=== PATIENT | male | born 1970 | race Caucasian/White ===

== ENCOUNTER 2016-10-25 10:28 | Emergency (ER) | payer OTHER ==
[2016-10-25 10:44] VITALS: BP 129/89; PULSE 79; RESP 15; TEMP 98.3
--- NOTE | 2016-10-25 10:58 | ED ---
General Adult HPI - General Chief complaint: Extremity Injury, Upper Stated complaint: LEFT SHOULDER INJURY Time Seen by Provider: 10/25/16 10:45 Source: patient, family, RN notes reviewed Mode of arrival: ambulatory Limitations: no limitations - History of Present Illness Initial comments: Laying and history of present illness a 45-year-old male here with his significant other. Patient reports he was playing football yesterday with his children and he landed on his left shoulder. The patient presents now with pain through the left shoulder area. No head or neck injury. No loss of consciousness. - Related Data Previous Rx's Medication Instructions Recorded Ibuprofen [Motrin] 600 mg PO Q6HR PRN #20 tab 10/25/16 Allergies Allergy/AdvReac Type Severity Reaction Status Date / Time No Known Allergies Allergy Verified 10/25/16 10:44 Review of Systems ROS Statement: Those systems with pertinent positive or pertinent negative responses have been documented in the HPI. Review of systems. No visual acuity changes no headache no stiff neck no neck pain. No chest pain shows breath GI/ problems. No balance problems. Patient has pain to his left shoulder area along the AC area. Range of motion is decreased with abduction. Passive range of motion was much less uncomfortable. All systems are reviewed. Past medical problems significant for diverticulitis. Surgeries none. Family history mother had lung cancer. Patient denies ALLERGIES. He does smoke strongly encouraged. He states he quits drinking alcohol for 12 years but drank yesterday. ROS Other: All systems not noted in ROS Statement are negative. Past Medical History Past Medical History: No Reported History Additional Past Medical History / Comment(s): diverticulitis History of Any Multi-Drug Resistant Organisms: None Reported Past Surgical History: No Surgical Hx Reported Additional Past Anesthesia/Blood Transfusion Reaction / Comment(s): no family problems w/anesthesia Past Psychological History: No Psychological Hx Reported Smoking Status: Current every day smoker Past Alcohol Use History: Occasional Additional Past Alcohol Use History / Comment(s): <ppd since age of 18 Past Drug Use History: None Reported - Past Family History Mother Family Medical History: Cancer General Exam - General Exam Comments Initial Comments: General: The patient is awake and alert, complaining of left shoulder pain. Vital signs shows temperature 98.3 pulse 79 respiratory rate 15 pulse ox 97% room air blood pressure 129/89 Eye: Pupils are equal, round and reactive to light, extra-ocular movements are intact ; there is normal conjunctiva bilaterally. No signs of icterus. Ears, nose, mouth and throat: There are moist mucous membranes and no oral lesions. Neck: The neck is supple, there is no tenderness , no anterior cervical lymphadenopathy. Cardiovascular: There is a regular rate and rhythm. No murmur, rub or gallop is appreciated. Respiratory: Lungs are clear to auscultation, respirations are non-labored, breath sounds are equal. No wheezes, stridor, rales, or rhonchi. Gastrointestinal: Soft, non-distended, non-tender abdomen without masses or organomegaly noted. There is no rebound or guarding present. No CVA tenderness. Bowel sounds are unremarkable. Back: There is no tenderness to palpation in the midline. There is no obvious deformity. Range of motion rash noted over right scapula where he fell off his 4 briscoe. Abdomen shows full range of motion otherwise no complaints of discomfort in that area. Musculoskeletal: IS NORMAL EXCEPT LEFT SHOULDER AREA. NEAR THE LEFT ACROMIOCLAVICULAR AREA. PAIN WITH ACTIVE MOTION AND SIGNIFICANTLY LESS PAIN WITH PASSIVE RANGE OF MOTION ACTIVITY. NORVASC STATUS TO THE HAND IS INTACT. NO BRUISES MINIMAL SWELLING NOTED OF THE SHOULDER AREA. Neurological: No focal or lateralizing findings appreciated. Skin: Skin is warm and dry and no rashes or lesions are noted. Limitations: no limitations Course Vital Signs 10/25/16 10:40 Temperature 98.3 F Pulse Rate 79 Respiratory 15 Rate Blood Pressure 129/89 O2 Sat by Pulse 97 Oximetry Medical Decision Making - Medical Decision Making Radiologist reviewed the x-rays of the shoulder and his impression is; bone mineralization, joint space alignment are maintained. Left lung apex as visualized normal. Impression no acute abnormality evident. As read by Dr. Lucio Patient will be advised to use ice to the area. Ibuprofen 600 mg for discomfort. Ice to the area for discomfort. Advised follow-up with family physician as needed. Disposition Clinical Impression: Strain of shoulder, Shoulder contusion Disposition: HOME SELF-CARE Condition: Fair Additional Instructions: Ice elevate, rest shoulder. Appropriate for pain. Off work. Follow-up with family physician. Prescriptions: Ibuprofen [Motrin] 600 mg PO Q6HR PRN #20 tab PRN Reason: Pain Referrals: Imani Willingham DO [Primary Care Provider] - 1-2 days Time of Disposition: 11:39
--- NOTE | 2016-10-25 11:36 | XR ---
Left shoulder HISTORY: Pain 3 views of the left shoulder Bone mineralization, joint spaces and alignment are maintained. Left lung apex as visualized is geronimo l. IMPRESSION: No acute abnormality evident
== END 2016-10-25 11:59 | disposition home or self-care (01) ==
LOC: EC 10:28
DX: S46.912A Strain of unspecified muscle, fascia and tendon at shoulder and upper arm level, left arm, initial encounter (principal); F17.200 Nicotine dependence, unspecified, uncomplicated; W50.0XXA Accidental hit or strike by another person, initial encounter; Y93.61 Activity, american tackle football
CPT/HCPCS: 99283

== ENCOUNTER 2017-12-14 09:39 | Observation (INO) | payer OTHER ==
[2017-12-14] MEDS ORDERED: ASPIRIN 81 MG PO STA (10:00)
--- NOTE | 2017-12-14 10:11 | ED ---
General Adult HPI <Jamel Vance - Last Filed: 12/14/17 11:31> - General Source: patient, RN notes reviewed Mode of arrival: wheelchair Limitations: no limitations <Isidro Giles - Last Filed: 12/14/17 11:35> - General Chief complaint: Chest Pain Stated complaint: chest pain Time Seen by Provider: 12/14/17 09:54 - History of Present Illness Initial comments: Patient 47-year-old male presenting to the emergency room today with chief complaint of chest pain. Patient does admit that he was at work earlier today when he broke out into a sweat and was feeling some chest discomfort. Patient states currently chest pain-free at this time. Patient states that her last few days she's had some sinus congestion. States a minimal cough as well. Patient denies any other complaints or symptoms currently. Patient denies any recent shortness of breath, abdominal pain, nausea or vomiting, numbness or tingling, dysuria or hematuria, constipation or diarrhea, headaches or visual changes, or any other complaints. (Isidro Giles) - Related Data Home Medications Medication Instructions Recorded Confirmed No Known Home Medications 12/14/17 12/14/17 Allergies Allergy/AdvReac Type Severity Reaction Status Date / Time No Known Allergies Allergy Verified 12/14/17 10:23 Review of Systems ROS Other: All systems not noted in ROS Statement are negative. <Jamel Vance - Last Filed: 12/14/17 11:31> ROS Other: All systems not noted in ROS Statement are negative. <Isidro Giles - Last Filed: 12/14/17 11:35> ROS Statement: Those systems with pertinent positive or pertinent negative responses have been documented in the HPI. Past Medical History Past Medical History: No Reported History Additional Past Medical History / Comment(s): diverticulitis History of Any Multi-Drug Resistant Organisms: None Reported Past Surgical History: No Surgical Hx Reported Additional Past Anesthesia/Blood Transfusion Reaction / Comment(s): no family problems w/anesthesia Past Psychological History: No Psychological Hx Reported Smoking Status: Current every day smoker Past Alcohol Use History: Occasional Past Drug Use History: None Reported - Past Family History Mother Family Medical History: Cancer <Isidro Giles - Last Filed: 12/14/17 11:35> General Exam <Jamel Vance - Last Filed: 12/14/17 11:31> Limitations: no limitations <Isidro Giles - Last Filed: 12/14/17 11:35> - General Exam Comments Initial Comments: General: The patient is awake and alert, in no distress, and does not appear acutely ill. Eye: Pupils are equal, round and reactive to light, extra-ocular movements are intact. No nystagmus. There is normal conjunctiva bilaterally. No signs of icterus. Ears, nose, mouth and throat: There are moist mucous membranes and no oral lesions. Neck: The neck is supple, there is no tenderness or JVD. Cardiovascular: There is a regular rate and rhythm. No murmur, rub or gallop is appreciated. Respiratory: Lungs are clear to auscultation, respirations are non-labored, breath sounds are equal. No wheezes, stridor, rales, or rhonchi. Gastrointestinal: Soft, non-distended, non-tender abdomen without masses or organomegaly noted. There is no rebound or guarding present. No CVA tenderness. Musculoskeletal: Normal ROM, no tenderness. Strength 5/5. Sensation intact. Pulses equal bilaterally 2+. Neurological: A&O x 3. CN II-XII intact, There are no obvious motor or sensory deficits. Coordination appears grossly intact. Speech is normal. Skin: Skin is warm and dry and no rashes or lesions are noted. Psychiatric: Cooperative, appropriate mood & affect, normal judgment. (Isidro Giles) Vital Signs 12/14/17 12/14/17 09:49 11:16 Temperature 98.1 F Pulse Rate 89 72 Respiratory 18 18 Rate Blood Pressure 141/68 133/83 O2 Sat by Pulse 100 95 Oximetry Medical Decision Making - Lab Data Result diagrams: 12/14/17 10:04 12/14/17 10:04 <Jamel Vance - Last Filed: 12/14/17 11:31> - Lab Data Result diagrams: 12/14/17 10:04 12/14/17 10:04 <Isidro Giles - Last Filed: 12/14/17 11:35> - Medical Decision Making Patient was evaluated by myself, Dr. Vance. Patient resting comfortably in bed with only mild discomfort at this time. Patient did have pressure with radiation towards the back with associated sweating and nausea. Heart sounds: S1-S2 regular rate and rhythm without murmur. Lungs are clear to auscultation. No chest tenderness. Radial and pedal pulses 2/4 throughout. I reviewed and agree with the PA findings including diagnostic interpretation. Plan as written unless otherwise stated. Case was discussed in detail with Dr. Rivera, who will admit for Dr. Willingham. Patient and family were updated. (Jamel Vance) - Lab Data Lab Results 12/14/17 12/14/17 12/14/17 Range/Units 10:04 10:04 10:04 WBC 6.5 (3.8-10.6) k/uL RBC 5.11 (4.30-5.90) m/uL Hgb 17.4 (13.0-17.5) gm/dL Hct 48.9 (39.0-53.0) % MCV 95.7 (80.0-100.0) fL MCH 34.0 (25.0-35.0) pg MCHC 35.5 (31.0-37.0) g/dL RDW 13.2 (11.5-15.5) % Plt Count 179 (150-450) k/uL Neutrophils % 58 % Lymphocytes % 32 % Monocytes % 6 % Eosinophils % 2 % Basophils % 1 % Neutrophils # 3.8 (1.3-7.7) k/uL Lymphocytes # 2.1 (1.0-4.8) k/uL Monocytes # 0.4 (0-1.0) k/uL Eosinophils # 0.1 (0-0.7) k/uL Basophils # 0.0 (0-0.2) k/uL PT (9.0-12.0) sec INR (<1.2) APTT (22.0-30.0) sec Sodium 141 (137-145) mmol/L Potassium 4.3 (3.5-5.1) mmol/L Chloride 109 H (98-107) mmol/L Carbon Dioxide 25 (22-30) mmol/L Anion Gap 7 mmol/L BUN 15 (9-20) mg/dL Creatinine 1.24 (0.66-1.25) mg/dL Est GFR (CKD-EPI)AfAm 80 (>60 ml/min/1.73 sqM) Est GFR (CKD-EPI)NonAf 69 (>60 ml/min/1.73 sqM) Glucose 94 (74-99) mg/dL Calcium 9.4 (8.4-10.2) mg/dL Magnesium 1.8 (1.6-2.3) mg/dL Total Bilirubin 0.6 (0.2-1.3) mg/dL AST 47 (17-59) U/L ALT 67 (21-72) U/L Alkaline Phosphatase 64 (38-126) U/L Total Creatine Kinase 211 H (55-170) U/L CK-MB (CK-2) 2.7 H* (0.0-2.4) ng/mL CK-MB (CK-2) Rel Index 1.3 Troponin I <0.012 (0.000-0.034) ng/mL Total Protein 7.0 (6.3-8.2) g/dL Albumin 4.3 (3.5-5.0) g/dL / Range/Units 10:04 WBC (3.8-10.6) k/uL RBC (4.30-5.90) m/uL Hgb (13.0-17.5) gm/dL Hct (39.0-53.0) % MCV (80.0-100.0) fL MCH (25.0-35.0) pg MCHC (31.0-37.0) g/dL RDW (11.5-15.5) % Plt Count (150-450) k/uL Neutrophils % % Lymphocytes % % Monocytes % % Eosinophils % % Basophils % % Neutrophils # (1.3-7.7) k/uL Lymphocytes # (1.0-4.8) k/uL Monocytes # (0-1.0) k/uL Eosinophils # (0-0.7) k/uL Basophils # (0-0.2) k/uL PT 10.3 (9.0-12.0) sec INR 1.1 (<1.2) APTT 25.1 (22.0-30.0) sec Sodium (137-145) mmol/L Potassium (3.5-5.1) mmol/L Chloride (98-107) mmol/L Carbon Dioxide (22-30) mmol/L Anion Gap mmol/L BUN (9-20) mg/dL Creatinine (0.66-1.25) mg/dL Est GFR (CKD-EPI)AfAm (>60 ml/min/1.73 sqM) Est GFR (CKD-EPI)NonAf (>60 ml/min/1.73 sqM) Glucose (74-99) mg/dL Calcium (8.4-10.2) mg/dL Magnesium (1.6-2.3) mg/dL Total Bilirubin (0.2-1.3) mg/dL AST (17-59) U/L ALT (21-72) U/L Alkaline Phosphatase (38-126) U/L Total Creatine Kinase (55-170) U/L CK-MB (CK-2) (0.0-2.4) ng/mL CK-MB (CK-2) Rel Index Troponin I (0.000-0.034) ng/mL Total Protein (6.3-8.2) g/dL Albumin (3.5-5.0) g/dL Disposition <Jamel Vance - Last Filed: 12/14/17 11:31> Is patient prescribed a controlled substance at d/c from ED?: No Time of Disposition: 11:35 <Isidro Giles - Last Filed: 12/14/17 11:35> Clinical Impression: Chest pain Disposition: ADMITTED IP TO THIS HOSP Condition: Stable Referrals: Imani Willingham DO [Primary Care Provider] - 1-2 days
--- NOTE | 2017-12-14 10:21 | XR ---
EXAMINATION TYPE: XR chest 2V DATE OF EXAM: 12/14/2017 COMPARISON: None HISTORY: 47-year-old male with chest pain TECHNIQUE: PA and lateral views FINDINGS: Heart normal size. Aorta and pulmonary vasculature within normal limits. Strandy atelectasis lower jose antonio ngs. No consolidation or pleural effusion. IMPRESSION: No acute cardiopulmonary process.
[2017-12-14 10:25] LABS: Basophils % (A) 1 %; Eosinophils # (A) 0.1 k/uL (0-0.7); Eosinophils % (A) 2 %; HCT 48.9 % (39.0-53.0); HGB 17.4 gm/dL (13.0-17.5); Lymphocytes # (A) 2.1 k/uL (1.0-4.8); Lymphocytes % (A) 32 %; MCHC 35.5 g/dL (31.0-37.0); MCV 95.7 fL (80.0-100.0); Mean Platelet Volume 8.4; Monocytes # (A) 0.4 k/uL (0-1.0); Monocytes % (A) 6 %; Neutrophils # (A) 3.8 k/uL (1.3-7.7); Neutrophils % (A) 58 %; Platelet Count 179 k/uL (150-450); RBC 5.11 m/uL (4.30-5.90); RDW 13.2 % (11.5-15.5); WBC 6.5 k/uL (3.8-10.6)
[2017-12-14 10:30] LABS: INR 1.1 (<1.2); Partial Thromboplastin Time 25.1 sec (22.0-30.0); Prothrombin Time 10.3 sec (9.0-12.0)
[2017-12-14 10:34] LABS: Albumin 4.3 g/dL (3.5-5.0); Calcium 9.4 mg/dL (8.4-10.2); Magnesium 1.8 mg/dL (1.6-2.3); Potassium 4.3 mmol/L (3.5-5.1); Total Bilirubin 0.6 mg/dL (0.2-1.3)
[2017-12-14] MEDS ORDERED: NITROGLYCERIN SL TABS 0.4 MG TAB SUBLINGUAL STA (10:50)
[2017-12-14 10:56] LABS: Creatine Kinase 211 U/L (55-170)
[2017-12-14 11:08] LABS: Troponin I <0.012 ng/mL (0.000-0.034)
[2017-12-14 11:10] LABS: Creatine Kinase MB 2.7 ng/mL (0.0-2.4)
[2017-12-14] MEDS ORDERED: NITROGLYCERIN SL TABS 0.4 MG TAB SUBLINGUAL PRN (11:31)
[2017-12-14] MEDS ORDERED: SODIUM CHLORIDE 0.9% 1,000 ML IV ONE (11:31)
--- NOTE | 2017-12-14 12:41 | P.HPIM ---
History of Present Illness H&P Date: 12/14/17 Chief Complaint: Chest pain This is a 47-year-old male, patient of Dr. Willingham. He has a known past medical history of pinched nerve in his neck, nicotine dependence and daily alcohol use. Patient reports over the last 3 days he's had upper back discomfort. He felt like there was a knot in his back. Today while he was at work he started to have chest discomfort and was sweating profusely. The pain radiated up into the left shoulder. He had lasted for a few minutes he became concerned and presented to the emergency room for further evaluation and treatment. He was given nitro and it did help relieve some of his symptoms. He is concerned because he had a father who of a heart attack at the age of 52. Patient's last stress test was about 4 years ago and wound was negative. Patient has been admitted to the observation floor. Cardiology has been consulted. First troponin was negative, EKG normal sinus rhythm and chest x-ray was negative for any acute pulmonary process. D-dimer normal at 0.35. Patient also reports having some sinus congestion mostly in the morning but clears as the day proceeds. He denies any significant cough, shortness of breath, nausea or vomiting, bowel movement changes or urinary symptoms. He does report having a mild cough in the morning. Denies any lightheadedness or vision changes. Patient denies any new exercises or increasing his physical activity. Denies any new injury to his back. Patient also reports that he's been more stressed at work and is unsure if this is causing some of his symptoms. Review of Systems Please refer to HPI otherwise unremarkable Past Medical History Past Medical History: No Reported History Additional Past Medical History / Comment(s): diverticulitis History of Any Multi-Drug Resistant Organisms: None Reported Past Surgical History: No Surgical Hx Reported Additional Past Anesthesia/Blood Transfusion Reaction / Comment(s): no family problems w/anesthesia Past Psychological History: No Psychological Hx Reported Smoking Status: Current every day smoker Past Alcohol Use History: Occasional Past Drug Use History: None Reported - Past Family History Mother Family Medical History: Cancer Medications and Allergies Home Medications Medication Instructions Recorded Confirmed Type No Known Home Medications 12/14/17 12/14/17 History Allergies Allergy/AdvReac Type Severity Reaction Status Date / Time No Known Allergies Allergy Verified 12/14/17 10:23 Physical Exam Vitals: Vital Signs Temp Pulse Resp BP Pulse Ox 12/14/17 11:16 72 18 133/83 95 12/14/17 09:49 98.1 F 89 18 141/68 100 Intake and Output 12/13/17 12/14/17 12/14/17 22:59 06:59 14:59 Other: Weight 90.129 kg Head normocephalic Neck supple Lungs clear to auscultation bilaterally no wheezing or crackles Heart regular rate and rhythm S1-S2, no rub or gallop Abdomen is soft nontender nondistended positive bowel sounds no hepatosplenomegaly Extremities no edema Neuro alert and orientated to 3 Back: No rashes or lesions noted. Tender with palpation of the paravertebral muscles along the thoracic spine Results CBC & Chem 7: 12/14/17 10:04 12/14/17 10:04 Labs: Abnormal Lab Results - Last 24 Hours (Table) 12/14/17 12/14/17 Range/Units 10:04 10:04 Chloride 109 H (98-107) mmol/L Total Creatine Kinase 211 H (55-170) U/L CK-MB (CK-2) 2.7 H* (0.0-2.4) ng/mL Assessment and Plan Assessment: 1. Chest pain: First troponin negative, EKG normal sinus rhythm, d-dimer 0.35. Chest x-ray negative. Cardiology consulted. patient does have significant family cardiac history with a father who at age 52 due to heart attack. Patient denies any diabetes, hypertension, hyperlipidemia 2. Nicotine dependence: Discussed smoking cessation for greater than 3 minutes. Patient refuses nicotine patch at this time 3. Daily alcohol use. Patient reports drinking one glass of vodka and Pepsi almost daily. But has no problem going without alcoholic drink GI prophylaxis Protonix and DVT prophylaxis Lovenox Time with Patient: Greater than 30 (Greater than 60% of the total time spent in counseling and coordination of care.I performed an examination of the patient and discussed their management with the physician Textile Worker. I have reviewed the Physician Textile Worker's notes and agree with the documented findings and plan of care)
--- NOTE | 2017-12-14 15:26 | ECHOF ---
Referral Reason:cp MEASUREMENTS -------- HEIGHT: 180.3 cm WEIGHT: 89.8 kg BP: IVSd: 1.2 cm (0.6 - 1.1) LVIDd: 3.9 cm (3.9 - 5.3) LVPWd: 1.4 cm (0.6 - 1.1) IVSs: 1.7 cm LVIDs: 2.5 cm LVPWs: 1.8 cm RVIDd: 2.5 cm (< 3.3) Ao Diam: 3.5 cm (2.0 - 3.7) LA Diam: 3.0 cm (2.7 - 3.8) AV Cusp: 2.2 cm (1.5 - 2.6) EPSS: 0.3 cm MV E Phil: 0.92 m/s MV DecT: 139 ms MV A Phil: 0.37 m/s MV E/A Ratio: 2.50 RAP: 5.00 mmHg RVSP: 12.32 mmHg MV EF SLOPE: 108.66 mm/s (70 - 150) MV EXCURSION: 21.87 mm (> 18.000) FINDINGS -------- Sinus rhythm. This was a technically good study. The left ventricular size is normal. There is mild concentric left ventricular hypertrophy. Overa ll left ventricular systolic function is normal with, an EF between 55 - 60 %. The right ventricle is normal in size and function. The left atrium is normal in size. The right atrium is normal in size. The aortic valve is trileaflet, and appears structurally normal. No aortic stenosis or regurgitation. There is trace mitral regurgitation. Trace tricuspid regurgitation present. The right ventricular systolic pressure, as measured by Dopp ler, is 12.32mmHg. Pulmonic valve appears structurally normal. The aortic root size is normal. Normal inferior vena cava with normal inspiratory collapse consistent with estimated right atrial pre ssure of 5 mmHg. The pericardium is normal. CONCLUSIONS -------- 1. Sinus rhythm. 2. This was a technically good study. 3. The left ventricular size is normal. 4. There is mild concentric left ventricular hypertrophy. 5. Overall left ventricular systolic function is normal with, an EF between 55 - 60 %. 6. The right ventricle is normal in size and function. 7. The left atrium is normal in size. 8. The right atrium is normal in size. 9. The aortic valve is trileaflet, and appears structurally normal. No aortic stenosis or regurgitati on. 10. There is trace mitral regurgitation. 11. Trace tricuspid regurgitation present. 12. The right ventricular systolic pressure, as measured by Doppler, is 12.32mmHg. 13. Pulmonic valve appears structurally normal. 14. The aortic root size is normal. 15. Normal inferior vena cava with normal inspiratory collapse consistent with estimated right atrial pressure of 5 mmHg. 16. The pericardium is normal. SUPERVISOR HARVESTING: Margo Hendrickson RDCS
[2017-12-14] MEDS ORDERED: RX INFO: IV CONTRAST WAS GIVEN 1 EACH MISC MISCELLANE PRN (15:44)
--- NOTE | 2017-12-14 15:45 | P.CRDCN ---
History of Present Illness History of present illness: Mr. Mukherjee is a pleasant 47-year-old male past medical history significant for chronic nicotine dependence and significant family history of CAD with father having TN at 52 causing . He denies personal history of CAD and most recent stress test was 4-years ago. We have been asked to see him in consultation for chest pain. He states starting last week [place] he had pain in the mid back region that was very uncomfortable and achy. He states it feels like there is a knot in his back. The pain in the back has been ongoing and steady with no specific aggravating factors. Today while at work he walked back to his desk to some paperwork and felt an intense pressure in his chest. He continued to have achy/knot sensation in his back. He denies radiation down the arms, into the neck or the jaw. He felt nauseated and diaphoretic with these symptoms. He denies associated shortness of breath, palpitations, vomiting or dizziness. He drove himself to the emergency department from work. When he arrived at the hospital he still had some minimal chest discomfort and was given a sublingual nitroglycerin. His symptoms seem to have subsided after that. He continues to feel a discomfort in the mid back region. This is constant and not reproducible on palpation. EKG reveals sinus mechanism with no acute ST or T-wave abnormalities. Chest x-ray is negative for an acute cardiopulmonary process. Laboratory data reviewed, hemoglobin 17.4, platelets 179, d-dimer 0.35, sodium 141, potassium 4.3, magnesium 1.8, creatinine 1.24, troponin less than 0.012 with a CK-MB of 2.7. He takes no daily medications. Review of Systems At the time of my exam: CONSTITUTIONAL: Denies fever. Denies chills. EYES: Denies blurred vision. Denies vision changes. Denies eye pain. EARS, NOSE, MOUTH & THROAT: Denies headache. Denies sore throat. Denies ear pain. CARDIOVASCULAR: Denies chest pain. Denies shortness of breath. Denies orthopnea. Denies PND. Denies palpitations. RESPIRATORY: Denies cough. GASTROINTESTINAL: Denies abdominal pain. Denies diarrhea. Denies constipation. Denies nausea. Denies vomiting. MUSCULOSKELETAL: Complains of mid back discomfort. INTEGUMENTARY: Denies pruitis. Denies rash. NEUROLOGIC: Denies numbness. Denies tingling. Denies weakness. PSYCHIATRIC: Denies anxiety. Denies depression. ENDOCRINE: Denies fatigue. Denies weight change. Denies polydipsia. Denies polyurina. GENITOURINARY: Denies burning, hematuria or urgency with micturation. HEMATOLOGIC: Denies history of anemia. Denies bleeding. Past Medical History Past Medical History: No Reported History Additional Past Medical History / Comment(s): Recent sinus congestion with minimal cough, diverticulitis, occasional R posterior neck pain. History of Any Multi-Drug Resistant Organisms: None Reported Past Surgical History: No Surgical Hx Reported Additional Past Anesthesia/Blood Transfusion Reaction / Comment(s): No family problems w/anesthesia. Pt has never had anesthesia Smoking Status: Current every day smoker - Past Family History Mother Family Medical History: Cancer Additional Family Medical History / Comment(s): Mother from lung cancer at the age of 63 yrs. She was a former smoker. Father Family Medical History: Myocardial Infarction (TN) Additional Family Medical History / Comment(s): Father of a TN at the age of 52 yrs. Medications and Allergies Home Medications Medication Instructions Recorded Confirmed Type No Known Home Medications 12/14/17 12/14/17 History Allergies Allergy/AdvReac Type Severity Reaction Status Date / Time No Known Allergies Allergy Verified 12/14/17 10:23 Physical Exam Vitals: Vital Signs Temp Pulse Pulse Resp BP BP Pulse Ox 12/14/17 12:00 98 F 58 L 18 126/76 95 12/14/17 11:16 72 18 133/83 95 12/14/17 09:49 98.1 F 89 18 141/68 100 Intake and Output 12/14/17 12/14/17 12/14/17 06:59 14:59 22:59 Intake Total 236 Balance 236 Intake: Oral 236 Other: Voiding Method Toilet # Voids 1 Weight 89.9 kg Blood pressure 126/76 heart rate 58 afebrile maintaining oxygen saturation on room air GENERAL: This is a 47-year-old male in no apparent distress at the time of my examination. HEENT: Head is atraumatic, normocephalic. Pupils are equal, round. Sclerae anicteric. Conjunctivae are clear. Mucous membranes of the mouth are moist. Neck is supple. There is no jugular venous distention. No carotid bruit is heard. LUNGS: Clear to auscultation no wheezes, rales or rhonchi. No chest wall tenderness is noted on palpation or with deep breathing. HEART: Regular rate and rhythm without murmurs, rubs or gallops. S1 and S2 heard. ABDOMEN: Soft, nontender. Bowel sounds are heard. No organomegaly noted. EXTREMITIES: No evidence of peripheral edema and no calf tenderness noted. VASCULAR: Radial and dorsalis pedis pulses palpated, no evidence of clubbing. NEUROLOGIC: Patient is awake, alert and oriented x3. Results 12/14/17 10:04 12/14/17 10:04 Cardiac Enzymes 12/14/17 12/14/17 Range/Units 10:04 10:04 AST 47 (17-59) U/L CK-MB (CK-2) 2.7 H* (0.0-2.4) ng/mL Troponin I <0.012 (0.000-0.034) ng/mL Coagulation 12/14/17 Range/Units 10:04 PT 10.3 (9.0-12.0) sec APTT 25.1 (22.0-30.0) sec CBC 12/14/17 Range/Units 10:04 WBC 6.5 (3.8-10.6) k/uL RBC 5.11 (4.30-5.90) m/uL Hgb 17.4 (13.0-17.5) gm/dL Hct 48.9 (39.0-53.0) % Plt Count 179 (150-450) k/uL Comprehensive Metabolic Panel 12/14/17 Range/Units 10:04 Sodium 141 (137-145) mmol/L Potassium 4.3 (3.5-5.1) mmol/L Chloride 109 H (98-107) mmol/L Carbon Dioxide 25 (22-30) mmol/L BUN 15 (9-20) mg/dL Creatinine 1.24 (0.66-1.25) mg/dL Glucose 94 (74-99) mg/dL Calcium 9.4 (8.4-10.2) mg/dL AST 47 (17-59) U/L ALT 67 (21-72) U/L Alkaline Phosphatase 64 (38-126) U/L Total Protein 7.0 (6.3-8.2) g/dL Albumin 4.3 (3.5-5.0) g/dL Current Medications Generic Name Dose Route Start Last Admin Trade Name Victor Manuel PRN Reason Stop Dose Admin Aspirin 325 mg 12/15/17 09:00 Aspirin PO DAILY [facility] Heparin Sodium (Porcine) 5,000 unit 12/14/17 21:00 Heparin SQ Q12HR [facility] Sodium Chloride 1,000 mls @ 20 mls/hr 12/14/17 11:31 12/14/17 13:04 Saline 0.9% IV 12/15/17 11:30 Not Given .Q24H ONE Nitroglycerin 0.4 mg 12/14/17 11:31 Nitrostat SUBLINGUAL Q5M PRN Chest Pain Pantoprazole Sodium 40 mg 12/15/17 07:30 Protonix PO AC-BRKFST [facility] Intake and Output 12/14/17 12/14/17 12/14/17 06:59 14:59 22:59 Intake Total 236 Balance 236 Intake: Oral 236 Other: Voiding Method Toilet # Voids 1 Weight 89.9 kg Patient Weight 12/15/17 06:59 Weight 89.9 kg 12/14/17 10:04 12/14/17 10:04 Assessment and Plan Assessment: ASSESSMENT Chest pain radiating from the back through to the chest with associated nausea and diaphoresis. Chronic nicotine dependence Family history of premature coronary artery disease causing Daily alcohol intake PLAN Obtain 2-D echocardiogram and Doppler study to assess cardiac structure and function. Continue to obtain serial cardiac enzymes to rule out an acute coronary event. Obtain stat CT of the chest to assess aorta. EKG and cardiac enzymes are normal we will consider proceeding with a stress test in the morning. Further recommendations to follow. Thank you kindly for this consultation. Nurse Practitioner note has been reviewed, I agree with a documented findings and plan of care. Patient was seen and examined.
[2017-12-14 16:07] LABS: Creatine Kinase 135 U/L (55-170)
[2017-12-14 16:20] LABS: Creatine Kinase MB 1.8 ng/mL (0.0-2.4); Troponin I <0.012 ng/mL (0.000-0.034)
--- NOTE | 2017-12-14 17:07 | CT ---
EXAMINATION TYPE: CT chest w con DATE OF EXAM: 12/14/2017 COMPARISON: None HISTORY: Chest pain and nausea today. CT DLP: 378.9 mGycm Automated exposure control for dose reduction was used. CONTRAST: CT scan of the chest is performed with IV Contrast, patient injected with 100ml mL of Isovue M300. FINDINGS: The lungs are clear of infiltrate. There is no evidence of a pulmonary mass. There is no pleural effu bib. Heart size is normal. There is no pericardial effusion. There are no hilar masses. There is no mediastinal adenopathy. Thoracic aorta appears normal. There is no evidence of aneurysm or dissection . Ascending aorta measures 3.3 cm. The bony thorax is intact. Upper abdominal soft tissues are unrema rkable. IMPRESSION: Chest CT scan is normal for age.
[2017-12-14] MEDS: HEPARIN SODIUM,PORCINE 5,000 UNIT/ML 1 ML VIAL SQ SCH (21:06)
[2017-12-14 22:40] LABS: Creatine Kinase 109 U/L (55-170)
[2017-12-14 22:52] LABS: Creatine Kinase MB 1.4 ng/mL (0.0-2.4); Troponin I <0.012 ng/mL (0.000-0.034)
[2017-12-15] MEDS ORDERED: PANTOPRAZOLE 40 MG TABLET PO SCH (07:30)
[2017-12-15 07:35] LABS: Basophils % (A) 1 %; Eosinophils # (A) 0.1 k/uL (0-0.7); Eosinophils % (A) 2 %; HCT 49.4 % (39.0-53.0); HGB 17.1 gm/dL (13.0-17.5); Lymphocytes # (A) 1.4 k/uL (1.0-4.8); Lymphocytes % (A) 30 %; MCHC 34.5 g/dL (31.0-37.0); MCV 98.5 fL (80.0-100.0); Mean Platelet Volume 8.2; Monocytes # (A) 0.4 k/uL (0-1.0); Monocytes % (A) 7 %; Neutrophils # (A) 2.8 k/uL (1.3-7.7); Neutrophils % (A) 58 %; Platelet Count 187 k/uL (150-450); RBC 5.01 m/uL (4.30-5.90); RDW 13.8 % (11.5-15.5); WBC 4.8 k/uL (3.8-10.6)
[2017-12-15 07:53] LABS: ALT 65 U/L (21-72); AST 38 U/L (17-59); Albumin 3.9 g/dL (3.5-5.0); Alkaline Phosphatase 52 U/L (38-126); Anion Gap 5 mmol/L; Blood Urea Nitrogen 17 mg/dL (9-20); Calcium 9.2 mg/dL (8.4-10.2); Carbon Dioxide 25 mmol/L (22-30); Chloride 108 mmol/L (98-107); Cholesterol 163 mg/dL (<200); Glucose 90 mg/dL (74-99); HDL Cholesterol 53 mg/dL (40-60); LDL Cholesterol,Calculated 58 mg/dL (0-99); Potassium 4.7 mmol/L (3.5-5.1); Sodium 138 mmol/L (137-145); Total Bilirubin 0.6 mg/dL (0.2-1.3); Total Protein 6.5 g/dL (6.3-8.2); Triglycerides 258 mg/dL (<150)
[2017-12-15 08:20] VITALS: RESP 18
--- NOTE | 2017-12-15 08:37 | P.CRDCN ---
History of Present Illness History of present illness: Impression admitted with interscapular discomfort which radiated to the front of the chest. Associated nausea and sweating. He felt as if it was a pressure in his mid chest. History of smoking. No diabetes nor hypertension LDL is 58 mg/dL. Triglycerides 258 Daily alcohol intake Cardiac enzymes are normal ECG normal Normal echo Normal CT of the chest with contrast Suggest Exercise stress echo to maximum capacity Abstinence From smoking and alcohol consumption Follow up with Dr. Boo end was 6 weeks if stress test is normal Past Medical History Past Medical History: No Reported History Additional Past Medical History / Comment(s): Recent sinus congestion with minimal cough, diverticulitis, occasional R posterior neck pain. History of Any Multi-Drug Resistant Organisms: None Reported Past Surgical History: No Surgical Hx Reported Additional Past Anesthesia/Blood Transfusion Reaction / Comment(s): No family problems w/anesthesia. Pt has never had anesthesia Smoking Status: Current every day smoker - Past Family History Mother Family Medical History: Cancer Additional Family Medical History / Comment(s): Mother from lung cancer at the age of 63 yrs. She was a former smoker. Father Family Medical History: Myocardial Infarction ([place]) Additional Family Medical History / Comment(s): Father of a [place] at the age of 52 yrs. Medications and Allergies Home Medications Medication Instructions Recorded Confirmed Type No Known Home Medications 12/14/17 12/14/17 History Allergies Allergy/AdvReac Type Severity Reaction Status Date / Time No Known Allergies Allergy Verified 12/14/17 10:23 Physical Exam Vitals: Vital Signs Temp Pulse Pulse Resp BP BP BP 12/15/17 08:00 97.9 F 63 18 142/89 12/15/17 04:00 16 12/15/17 03:51 98.2 F 63 16 149/87 12/15/17 00:00 16 12/14/17 23:51 98.1 F 74 16 150/77 12/14/17 21:49 12/14/17 20:00 16 12/14/17 19:46 98.5 F 60 16 125/72 12/14/17 16:00 98.1 F 65 18 134/79 12/14/17 12:00 98 F 58 L 18 126/76 12/14/17 11:16 72 18 133/83 12/14/17 09:49 98.1 F 89 18 141/68 Pulse Ox 12/15/17 08:00 96 12/15/17 04:00 12/15/17 03:51 96 12/15/17 00:00 12/14/17 23:51 97 12/14/17 21:49 98 12/14/17 20:00 12/14/17 19:46 96 12/14/17 16:00 94 L 12/14/17 12:00 95 12/14/17 11:16 95 12/14/17 09:49 100 Intake and Output 12/14/17 12/15/17 12/15/17 22:59 06:59 14:59 Intake Total 222 Balance 222 Intake: Oral 222 Other: Voiding Method Toilet Toilet # Voids 1 1 Results 12/15/17 07:03 12/15/17 07:03 Cardiac Enzymes 12/14/17 12/14/17 12/14/17 Range/Units 10:04 10:04 15:42 AST 47 (17-59) U/L CK-MB (CK-2) 2.7 H* 1.8 (0.0-2.4) ng/mL Troponin I <0.012 <0.012 (0.000-0.034) ng/mL 12/14/17 12/15/17 Range/Units 22:16 07:03 AST 38 (17-59) U/L CK-MB (CK-2) 1.4 (0.0-2.4) ng/mL Troponin I <0.012 (0.000-0.034) ng/mL Coagulation 12/14/17 Range/Units 10:04 PT 10.3 (9.0-12.0) sec APTT 25.1 (22.0-30.0) sec Lipids 12/15/17 Range/Units 07:03 Triglycerides 258 H (<150) mg/dL Cholesterol 163 (<200) mg/dL HDL Cholesterol 53 (40-60) mg/dL CBC 12/14/17 12/15/17 Range/Units 10:04 07:03 WBC 6.5 4.8 (3.8-10.6) k/uL RBC 5.11 5.01 (4.30-5.90) m/uL Hgb 17.4 17.1 (13.0-17.5) gm/dL Hct 48.9 49.4 (39.0-53.0) % Plt Count 179 187 (150-450) k/uL Comprehensive Metabolic Panel 12/14/17 12/15/17 Range/Units 10:04 07:03 Sodium 141 138 (137-145) mmol/L Potassium 4.3 4.7 (3.5-5.1) mmol/L Chloride 109 H 108 H (98-107) mmol/L Carbon Dioxide 25 25 (22-30) mmol/L BUN 15 17 (9-20) mg/dL Creatinine 1.24 1.10 (0.66-1.25) mg/dL Glucose 94 90 (74-99) mg/dL Calcium 9.4 9.2 (8.4-10.2) mg/dL AST 47 38 (17-59) U/L ALT 67 65 (21-72) U/L Alkaline Phosphatase 64 52 (38-126) U/L Total Protein 7.0 6.5 (6.3-8.2) g/dL Albumin 4.3 3.9 (3.5-5.0) g/dL Current Medications Generic Name Dose Route Start Last Admin Trade Name Freq PRN Reason Stop Dose Admin Aspirin 325 mg 12/15/17 09:00 Aspirin PO DAILY [facility] Heparin Sodium (Porcine) 5,000 unit 12/14/17 21:00 12/14/17 21:06 Heparin SQ 5,000 unit Q12HR [facility] Administration Sodium Chloride 1,000 mls @ 20 mls/hr 12/14/17 11:31 12/14/17 13:04 Saline 0.9% IV 12/15/17 11:30 Not Given .Q24H ONE Miscellaneous Information 1 each 12/14/17 15:44 Rx Info: Iv Contrast Was Given MISCELLANE 12/16/17 15:45 DAILY PRN Per Protocol Nitroglycerin 0.4 mg 12/14/17 11:31 Nitrostat SUBLINGUAL Q5M PRN Chest Pain Pantoprazole Sodium 40 mg 12/15/17 07:30 Protonix PO AC-BRKFST [facility] Intake and Output 12/14/17 12/15/17 12/15/17 22:59 06:59 14:59 Intake Total 222 Balance 222 Intake: Oral 222 Other: Voiding Method Toilet Toilet # Voids 1 1 12/15/17 07:03 12/15/17 07:03
[2017-12-15] MEDS ORDERED: ASPIRIN 325 MG TAB PO SCH (09:00)
--- NOTE | 2017-12-15 09:50 | P.PN ---
Subjective Mr. Ramirez is seen and examined sitting up in the chair with his spouse. He continues to complain of pain in the mid-back with no further radiation to the chest. He denies any further nausea or diaphoresis. CT chest is negative for aortic abnormalities. Cardiac enzymes negative x3. Blood pressure 142/89 heart rate 63, LDL 58. Objective - Vital Signs Vital signs: Vital Signs Temp 97.9 F 12/15/17 08:00 Pulse 63 12/15/17 08:00 Resp 18 12/15/17 08:00 BP 142/89 12/15/17 08:00 Pulse Ox 96 12/15/17 08:00 Intake & Output 12/14/17 12/15/17 12/15/17 18:59 06:59 18:59 Intake Total 458 Balance 458 Weight 89.9 kg Intake: Oral 458 Other: Voiding Method Toilet Toilet # Voids 1 1 - Exam GENERAL: Well-appearing, well-nourished and in no acute distress. NECK: Supple without JVD or thyromegaly. LUNGS: Breath sounds clear to auscultation bilaterally. Respiration equal and unlabored. No wheezes, rales or rhonchi. HEART: Regular rate and rhythm without murmurs, rubs or gallops. S1 and S2 heard. EXTREMITIES: Normal range of motion, no edema. No clubbing or cyanosis. Peripheral pulses intact. - Labs CBC & Chem 7: 12/15/17 07:03 12/15/17 07:03 Labs: Abnormal Lab Results - Last 24 Hours (Table) 12/14/17 12/14/17 12/15/17 Range/Units 10:04 10:04 07:03 Chloride 109 H 108 H (98-107) mmol/L Total Creatine Kinase 211 H (55-170) U/L CK-MB (CK-2) 2.7 H* (0.0-2.4) ng/mL Triglycerides 258 H (<150) mg/dL Assessment and Plan Assessment: ASSESSMENT Chest pain radiating from the back through to the chest with associated nausea and diaphoresis. Chronic nicotine dependence Family history of premature coronary artery disease causing Daily alcohol intake PLAN An acute coronary event has been ruled out. Perform exercise stress echocardiogram today to assess for reversible cardiac ischemia. Stress test is normal he is stable from a cardiac perspective, follow-up with Dr. Chen in 6 weeks. Smoking cessation recommended. Nurse Practitioner note has been reviewed, I agree with a documented findings and plan of care. Patient was seen and examined.
[2017-12-15] MEDS: HEPARIN SODIUM,PORCINE 5,000 UNIT/ML 1 ML VIAL SQ SCH (10:51)
--- NOTE | 2017-12-15 11:47 | ECHOS ---
STRESS ECHOCARDIOGRAM DATE OF SERVICE: 12/15/2017 INDICATIONS: Chest pain. MEDICATIONS: BASELINE HEART RATE: 62 BASELINE BLOOD PRESSURE: 135/96 MAXIMUM HEART RATE: 150 MAXIMUM BLOOD PRESSURE: 218/76 85% MPHR: 146 100% MPHR: 172 METS: 11.9 MAXIMUM STAGE REACHED: III TOTAL EXERCISE TIME: 11 minutes CLINICAL INFORMATION: Patient admitted with chest discomfort. History of smoking. Normal cardiac enzymes. Baseline heart rate 62 beats per minute. Baseline blood pressure 135/96 mmHg. Baseline 12-lead ECG shows normal sinus rhythm with normal cardiac intervals. No ST- segment abnormalities. The patient exercised on a Juice protocol for 11 minute achieving a peak heart rate of 150 beats per minute. Normal blood pressure response to exercise. There was no ECG evidence for ischemia. No arrhythmias were noted. Baseline 2D echo images showed very occasional PVCs were noted. The baseline 2D echo images showed normal LV size and systolic function without segmental wall motion abnormalities. At peak exercise, there was excellent augmentation of overall LV contractility without developing any wall motion abnormalities. At recovery, regional global LV systolic function remained normal. IMPRESSION: No ECG or echocardiographic evidence for ischemia. MMODL / IJN: [id number] /
[2017-12-15 12:10] VITALS: BP 147/89; PULSE 72; TEMP 98.3
--- NOTE | 2017-12-15 14:08 | P.DS ---
Providers Date of admission: 12/14/17 11:37 Expected date of discharge: 12/15/17 Attending physician: Dylan Rivera Consults: 12/14/17 11:31 Consult Physician Stat Consulting Provider: [facility] Consult Reason/Comments: Chest pain Do you want consulting provider notified?: Yes Primary care physician: Imani Willingham [facility] Course: Discharge diagnosis 1. Chest pain: [place] ruled out. Troponin negative 3, EKG normal sinus rhythm, d- dimer 0.35. Chest x-ray negative. CT of the chest was negative for any dissection or aneurysm. Stress echo negative for ischemia. Echo shows an EF of 55-60% 2. Nicotine dependence: Discussed smoking cessation for greater than 3 minutes. Patient refuses nicotine patch at this time 3. Daily alcohol use. Patient reports drinking one glass of vodka and Pepsi almost daily. But has no problem going without alcoholic drink Hospital course This is a 47-year-old male, patient of Dr. Willingham. He has a known past medical history of pinched nerve in his neck, nicotine dependence and daily alcohol use. Patient reports over the last 3 days he's had upper back discomfort. He felt like there was a knot in his back. Today while he was at work he started to have chest discomfort and was sweating profusely. The pain radiated up into the left shoulder. He had lasted for a few minutes he became concerned and presented to the emergency room for further evaluation and treatment. He was given nitro and it did help relieve some of his symptoms. He is concerned because he had a father who of a heart attack at the age of 52. Patient's last stress test was about 4 years ago and wound was negative. Patient has been admitted to the observation floor. Cardiology has been consulted. First troponin was negative, EKG normal sinus rhythm and chest x-ray was negative for any acute pulmonary process. D-dimer normal at 0.35. Patient also reports having some sinus congestion mostly in the morning but clears as the day proceeds. He denies any significant cough, shortness of breath, nausea or vomiting, bowel movement changes or urinary symptoms. He does report having a mild cough in the morning. Denies any lightheadedness or vision changes. Patient denies any new exercises or increasing his physical activity. Denies any new injury to his back. Patient also reports that he's been more stressed at work and is unsure if this is causing some of his symptoms. Patient had a computed tomography scan of the chest with contrast which was negative for any aortic dissection or aneurysm. Stress echo was negative for any ischemia. Patient is been cleared by cardiology for discharge. Chest pain has resolved. Patient has been educated that he needs to quit smoking and decrease alcohol intake. Patient is stable for discharge home. He'll follow up with cardiology in the office in 6 weeks. Follow-up with PCP in 1 week. I performed an examination of the patient and discussed their management with the physician Production Coordinator. I have reviewed the Physician Production Coordinator's notes and agree with the documented findings and plan of care Patient Condition at Discharge: Stable Plan - Discharge Summary Discharge Rx Participant: No New Discharge Prescriptions: Continue No Known Home Medications Discharge Medication List No Known Home Medications 12/14/17 [History] Follow up Appointment(s)/Referral(s): Jack Chen MD [STAFF PHYSICIAN] - 6 Weeks (office will call patient with appointment) Imani Willingham DO [Primary Care Provider] - 1 Week Activity/Diet/Wound Care/Special Instructions: Diet: regular Activity: as tolerated needs to quit smoking and decrease alcohol consumption Discharge Disposition: HOME SELF-CARE
== END 2017-12-15 14:24 | disposition home or self-care (01) ==
LOC: EC 09:39 → 3OBS 11:37
PROVIDERS: ADMIT Internal Medicine; ATTEND Internal Medicine
DX: R07.89 Other chest pain (principal); R11.0 Nausea; R61 Generalized hyperhidrosis; R09.81 Nasal congestion; R05 Cough; M54.6 Pain in thoracic spine; K57.90 Diverticulosis of intestine, part unspecified, without perforation or abscess without bleeding; F17.200 Nicotine dependence, unspecified, uncomplicated; Z72.89 Other problems related to lifestyle; Z86.69 Personal history of other diseases of the nervous system and sense organs; Z80.9 Family history of malignant neoplasm, unspecified; Z82.49 Family history of ischemic heart disease and other diseases of the circulatory system; Z80.1 Family history of malignant neoplasm of trachea, bronchus and lung; Z81.2 Family history of tobacco abuse and dependence
CPT/HCPCS: 99285 ×2; 96374; 96376; 36415; 94760; 93005; 93306; 93351; 85379; 80061; 80053 ×2; 82550; 82553; 83735; 84484; 85025 ×2; 85610; 85730; 71046; 71260; G0378 ×2; J1644 ×2; Q9967

== ENCOUNTER 2023-01-20 09:35 | Emergency (ER) | payer BC, OTHER ==
[2023-01-20 09:40] VITALS: TEMP 98.8
[2023-01-20] MEDS ORDERED: LIDOCAINE 5% PATCH TOPICAL ONE (09:51)
[2023-01-20] MEDS ORDERED: HYDROmorphone 0.5 MG/0.5 ML SYRINGE IM STA (09:51)
[2023-01-20] MEDS ORDERED: KETOROLAC 15 MG/ML 1 ML VIAL IM STA (09:51)
[2023-01-20] MEDS ORDERED: DEXAMETHASONE SOD PHOSPHATE 10 MG/ML 1 ML VIAL IM STA (09:51)
--- NOTE | 2023-01-20 10:18 | ED ---
Back Pain HPI - General Chief Complaint: Back Pain/Injury Stated Complaint: Back Pain Time Seen by Provider: 01/20/23 09:47 Source: patient, EMS, RN notes reviewed Mode of arrival: EMS Limitations: no limitations - History of Present Illness Initial Comments: This is a 52-year-old male who presents to the emergency department for lower back pain. States that this started 3 days ago. Denies any injuries. States that this started in the middle of the back and is now right-sided. States that the pain is also starting to radiate down the right leg. He took ibuprofen and Flexeril that he had leftover at home. He felt like the pain started to improve, however when he woke up this morning, he was unable to move. States that he has had difficulty bearing weight for 3 days. Denies any loss of bowel/bladder control or saddle anesthesia. Denies any fevers, chills, sore throat, cough, dyspnea, chest pain, palpitations, abdominal pain, nausea, vomiting, diarrhea, or headaches. MD Complaint: back pain Onset/Timin -: days(s) - Related Data Previous Rx's Medication Instructions Recorded HYDROcodone/APAP 5-325MG [[place] 1 tab PO Q6HR PRN 3 Days #12 tab 01/20/23 5-325] Lidocaine 5% Patch [Lidoderm 5% 1 patch TOPICAL DAILY PRN #30 patch 01/20/23 Patch] methocarbamoL [Robaxin-750] 1,500 mg PO QID PRN #30 tab 01/20/23 predniSONE 50 mg PO DAILY 5 Days #5 tab 01/20/23 Allergies Allergy/AdvReac Type Severity Reaction Status Date / Time No Known Allergies Allergy Verified 01/20/23 09:40 Review of Systems ROS Statement: Those systems with pertinent positive or pertinent negative responses have been documented in the HPI. ROS Other: All systems not noted in ROS Statement are negative. Past Medical History Past Medical History: Hypertension Additional Past Medical History / Comment(s): Recent sinus congestion with minimal cough, diverticulitis, occasional R posterior neck pain. History of Any Multi-Drug Resistant Organisms: None Reported Past Surgical History: No Surgical Hx Reported Additional Past Anesthesia/Blood Transfusion Reaction / Comment(s): No family problems w/anesthesia. Pt has never had anesthesia Past Psychological History: No Psychological Hx Reported Smoking Status: Current every day smoker Past Alcohol Use History: Occasional Past Drug Use History: None Reported - Past Family History Mother Family Medical History: Cancer Additional Family Medical History / Comment(s): Mother from lung cancer at the age of 63 yrs. She was a former smoker. Father Family Medical History: Myocardial Infarction ([place]) Additional Family Medical History / Comment(s): Father of a [place] at the age of 52 yrs. General Exam Limitations: no limitations General appearance: alert, in no apparent distress Head exam: Present: atraumatic, normocephalic, normal inspection Respiratory exam: Present: normal lung sounds bilaterally. Absent: respiratory distress, wheezes, rales, rhonchi, stridor Cardiovascular Exam: Present: regular rate, normal rhythm, normal heart sounds. Absent: systolic murmur, diastolic murmur, rubs, gallop, clicks Back exam: Present: normal inspection. Absent: tenderness, CVA tenderness (R), CVA tenderness (L) Neurological exam: Present: alert, oriented X3, CN II-XII intact Psychiatric exam: Present: normal affect, normal mood Skin exam: Present: warm, dry, intact, normal color. Absent: rash Course Vital Signs 01/20/23 01/20/23 01/20/23 09:37 11:41 13:20 Temperature 98.8 F 98.8 F Pulse Rate 97 67 70 Respiratory 20 18 Rate Blood Pressure 173/114 162/101 158/78 O2 Sat by Pulse 100 100 Oximetry Medical Decision Making - Medical Decision Making This is a 52-year-old male who presents to the emergency department for back pain. Was pt. sent in by a medical professional or institution? @ -No Did you speak to anyone other than the patient for history? @ -No Did you review nursing and triage notes? @ -Yes, and I agree, it is accurate with regards to the patient's symptoms. Were old charts reviewed? @ -No Differential Diagnosis? @ -Differential Back Pain: Strain, zoster, cauda equina syndrome, epidural abscess, vertebral osteomyelitis, discitis, fracture, subluxation, disc herniation, DJD, spinal stenosis, dissection, AAA, pancreatitis, peptic ulcer disease, pyelonephritis, kidney stone, this is not meant to be an all-inclusive list. EKG interpreted by me (3pts min.)? @ -Not obtained X-rays interpreted by me (1pt min.)? @ -Not obtained CT interpreted by me (1pt min.)? @ -Computed tomography scan of the lumbar spine obtained. My interpretation identifies multiple degenerative changes. U/S interpreted by me (1pt. min.)? @ -Not obtained What testing was considered but not performed? (CT, X-rays, U/S, labs)? Why? @ -None What meds were considered but not given? Why? @ -None Did you discuss the management of the patient with other professionals? @ -No Did you reconcile home meds? @ -No Was smoking cessation discussed for >3mins.? @ -No Was critical care preformed (if so, how long)? @ -No Were there social determinants of health that impacted care today? How? (Homelessness, low income, unemployed, alcoholism, drug addiction, transportation, low edu. Level, literacy, decrease access to med. care, halfway, rehab)? @ -No Was there de-escalation of care discussed even if they declined? (Discuss DNR or withdrawal of care, Hospice)? @ -No What co-morbidities impacted this encounter? (DM, HTN, Smoking, COPD, CAD, Cancer, CVA, Hep., AIDS, mental health diagnosis, sleep apnea, morbid obesity)? @ -None Was patient admitted / discharged? @ -Discharged. Computed tomography scan of the lumbar spine obtained. Findings reveal an age-indeterminate L4 compression fracture, which the patient is aware of and states that is several years old. Also identifies an L3-L4 right extraforaminal disc herniation with superior migration resulting in moderate central canal stenosis and severe right neural foraminal stenosis. Findings reviewed with the patient, advised that he disc herniation is likely the cause of his symptoms. Pain was controlled in the emergency department. Rx for prednisone, Robaxin, [place], and lidocaine patches provided with dosing instructions reviewed. Advised to the [place] sparingly when his pain is the most severe. Also advised the [place] and Robaxin are sedating and he should avoid driving or operating machinery when taking this. Information for orthopedic follow-up provided regarding the herniated disc. Undiagnosed new problem with uncertain prognosis? @ -None Drug Therapy requiring intensive monitoring for toxicity (Heparin, Nitro, Insulin, Cardizem)? @ -None Were any procedures done? @ -None Diagnosis/symptom? @ -Lumbar disc herniation, lumbar radiculopathy Acute, or Chronic, or Acute on Chronic? @ -Acute Uncomplicated (without systemic symptoms) or Complicated (systemic symptoms)? @ -Uncomplicated Side effects of treatment? @ -None Exacerbation, Progression, or Severe Exacerbation] @ -Not applicable Poses a threat to life or bodily function? @ -Yes, the pain is having an impact on his ability to function. Return precautions reviewed in depth, the patient is instructed to return to the emergency department with any new, worsening, or concerning symptoms. Patient verbalized understanding. This case was discussed in detail with the attending ED physician, Dr. Aldridge. Presentation, findings, and treatment plan discussed in detail as well. - Radiology Data Radiology results: report reviewed, image reviewed Disposition Clinical Impression: Lumbar disc herniation Disposition: HOME SELF-CARE Instructions (If sedation given, give patient instructions): Lumbar Disc Herniation (ED) Additional Instructions: Return to the emergency department with any new, worsening, or concerning symptoms. Take the prednisone daily for 5 days. You can take the Robaxin up to 4 times daily and the [place] up to every 6 hours as needed for pain relief. Take the [place] sparingly when your pain is the most severe and be aware that both the Robaxin and [place] are sedating and you should avoid driving or operating machinery when taking them. Contact orthopedics as listed below for a follow-up appointment regarding the herniated disc. Follow up with your primary care provider in 1-2 days. Prescriptions: Lidocaine 5% Patch [Lidoderm 5% Patch] 1 patch TOPICAL DAILY PRN #30 patch PRN Reason: Pain HYDROcodone/APAP 5-325MG [[place] 5-325] 1 tab PO Q6HR PRN 3 Days #12 tab PRN Reason: Pain predniSONE 50 mg PO DAILY 5 Days #5 tab methocarbamoL [Robaxin-750] 1,500 mg PO QID PRN #30 tab PRN Reason: Pain Is patient prescribed a controlled substance at d/c from ED?: No Referrals: Nonstaff,Physician [REFERRING] - 1-2 days Houston Capps DO [Doctor of Osteopathic Medicine] - 1-2 days
--- NOTE | 2023-01-20 11:16 | CT ---
EXAMINATION TYPE: CT lumbar spine wo con CT DLP: 768 mGycm, Automated exposure control for dose reduction was used. DATE OF EXAM: 01/20/2023 11:07 AM COMPARISON: None. CLINICAL INDICATION:Male, 52 years old with history of Pain; PHH, lower back pain and down right leg, no injury TECHNIQUE: Multiple axial images were obtained from the midportion of T11 through the sacroiliac brii nts. Soft tissue and bone windows in coronal and sagittal planes were obtained and reviewed. FINDINGS: Alignment: There are 5 lumbar type vertebral bodies within normal alignment. Bone: Prominent Schmorl's node and/or anterior wedge compression deformity of the L4 vertebral body w ith approximately 20% height loss anteriorly. No retropulsion. No paraspinal edema. Discs: T12-L1: No spinal canal or neural foraminal stenosis is identified. L1-L2: Broad-based disc bulge without effacement of the intrathecal sac. The neural foramen are paten t bilaterally. L2-L3: Broad-based disc bulge with mild effacement of anterior thecal sac. The neural foramen are pat ent bilaterally. L3-L4: Right extra foraminal disc protrusion with superior migration of 9 mm. This is superimposed up on a broad-based disc bulge with moderate effacement of the intrathecal sac. Severe right neural fora selvin stenosis. Mild left neural foraminal stenosis. L4-L5: Broad-based disc bulge with mild effacement of anterior thecal sac. Mild bilateral neural for aminal stenosis. L5-S1: Round along its posterior. No spinal canal or neural foraminal stenosis is identified. Other: None IMPRESSION: 1. Age-indeterminate Schmorl's node versus anterior compression deformity of the superior and anterio r endplates of the L4 vertebral body. No paraspinal edema. Approximately 20% height loss anteriorly w ithout retropulsion. 2. L3-L4 right extra foraminal disc herniation with superior migration resulting in moderate central canal stenosis and severe right neural foraminal stenosis. 3. Multilevel degenerative disc disease as described above.
[2023-01-20] MEDS ORDERED: HYDROmorphone 1 MG/ML 1 ML SYRINGE IVP STA ×2 (11:17→11:53)
[2023-01-20] MEDS ORDERED: methocarbamoL 750 MG TAB PO ONE (11:30)
[2023-01-20 13:29] VITALS: BP 158/78; PULSE 70; RESP 18
== END 2023-01-20 13:20 | disposition home or self-care (01) ==
LOC: EC 09:35
DX: M51.16 Intervertebral disc disorders with radiculopathy, lumbar region (principal); I10 Essential (primary) hypertension; F17.200 Nicotine dependence, unspecified, uncomplicated
CPT/HCPCS: 72131; 99284; 96374; 96372 ×3; J1100; J1170 ×2; J1885